=== PATIENT | female | born 1930 | race Caucasian/White ===

== ENCOUNTER 2016-12-30 15:54 | Observation (INO) | payer MEDICARE, BC ==
[~2016-12-30] VITALS: Ht 162.6 cm; Wt 60.0 kg
[~2016-12-30 15:54] MED LIST: ATEN-51; LOSA25TA2; [UNRECOGNIZED DRUG - REMARK]
[2016-12-30] MEDS ORDERED: SOD CHLORIDE 0.9% 500 ML IV STA (16:01)
[2016-12-30 16:17] LABS: BASOPHILS % 0.3 % (0.0-2.0); EOSINOPHILS # 0.4 10^3/ul (0.0-0.5); EOSINOPHILS % 4.5 % (0.0-7.0); HEMATOCRIT 38.9 % (37.0-47.0); HEMOGLOBIN 13.6 g/dl (12.0-16.0); LYMPHOCYTES # 1.6 10^3/ul (0.8-2.9); LYMPHOCYTES % 17.6 % (15.0-51.0); MEAN CORPUSCULAR HEMOGLOBIN 36.4 pg (29.0-33.0); MEAN PLATELET VOLUME 10.6 fl (7.4-10.4); MONOCYTE # 0.8 10^3/ul (0.3-0.9); MONOCYTES % 9.1 % (0.0-11.0); NEUTROPHIL # 6.3 10^3/ul (1.6-7.5); NEUTROPHILS % 68.3 % (39.0-77.0); PLATELET COUNT 172 10^3/UL (140-415); RED BLOOD COUNT 3.74 10^6/ul (4.20-5.40); RED CELL DISTRIBUTION WIDTH 12.2 % (11.5-14.5); WHITE BLOOD COUNT 9.2 10^3/ul (4.8-10.8)
--- NOTE | 2016-12-30 16:51 | RADRPT ---
PROCEDURE: CT head without intravenous contrast CLINICAL INDICATION: Syncope. COMPARISON: None relevant listed. TECHNIQUE: Axial CT images from skull base to vertex with coronal and sagittal reformats. DOSE: The estimated administered radiation dose was CTDI vol = 44 mGy. DLP = 720 mGy-cm. One or mor e of the following dose reduction techniques were used: automated exposure control, adjustment of th e mA and/or kV according to patient size, or use of iterative reconstruction. FINDINGS: Parenchyma: No acute hemorrhage, large territorial infarction, or mass. Mild amount of periventricul ar and subcortical white matter hypodensity, a nonspecific finding often associated with chronic jose roangiopathy. Ventricles: Mild generalized volume with proportionate ex vacuo ventricular dilation. Extra-axial spaces: No herniation or midline shift. Paranasal sinuses: The right nasal cavity, right maxillary sinus, right ethmoid air cells, and right frontal sinus are opacified. Mastoids and middle ears: Clear. Visualized orbits: Bilateral lens replacements. Vessels: No calcified atherosclerotic arterial plaque identified. Bones: Normal. Extracranial soft tissues: Normal. Additional comment: None. IMPRESSION: 1. No acute hemorrhage or large territorial infarction. 2. Chronic senescent findings characterized by volume loss and white matter changes. 3. Obstructing lesion in the right nasal cavity with the right sided paranasal sinus disease. RPTAT: EE Physician Martin Date Time Electronically viewed and signed by Physician Martin on 12/30/2016 16:51 LG/
[2016-12-30] MEDS ORDERED: ATEN-51 PO (16:56)
--- NOTE | 2016-12-30 16:56 | RADRPT ---
PROCEDURE: XR Chest. CLINICAL INDICATION: Shortness of breath. Syncope. TECHNIQUE: Single frontal view. COMPARISON: None. FINDINGS: The lungs are clear. The heart size is normal. There is calcification in the aorta consistent with atherosclerosis. There is no pleural effusion. There is no pneumothorax. Surgical clips are present in the right axillary region. There are healing bilateral rib fractures. IMPRESSION: 1. Atherosclerosis. 2. Prior right axillary surgery. 3. Healing bilateral rib fractures. 4. Otherwise unremarkable chest radiograph. RPTAT: QQ .Rosalino Rodriguez MD, MD Date Time Electronically viewed and signed by .Rosalino Rodriguez MD, MD on 12/30/2016 16:55 .R/
[2016-12-30] MEDS ORDERED: LOSA25TA5 PO (16:57)
[2016-12-30] MEDS ORDERED: ASPI-664 PO (16:57)
[2016-12-30] MEDS ORDERED: CHOL100062 PO (16:58)
[2016-12-30] MEDS ORDERED: ASC500 PO (16:59)
[2016-12-30] MEDS ORDERED: CYAN100 PO (17:00)
[2016-12-30 17:35] LABS: ANION GAP 17 (8-16); BLOOD UREA NITROGEN 21 mg/dl (7-20); CALCIUM 10.1 mg/dl (8.4-10.2); CARBON DIOXIDE 22 mmol/L (21-31); CHLORIDE 103 mmol/L (97-110); CREATININE 1.06 mg/dl (0.44-1.00); GLUCOSE 130 mg/dl (70-220); POTASSIUM 3.9 mmol/L (3.5-5.1); SODIUM 138 mmol/L (135-144)
--- NOTE | 2016-12-30 17:44 | ERD ---
ER Documentation Chief Complaint Chief Complaint BIB RA FOR EVAL OF SYNCOPAL EPISODE AT HOME. HPI This is an 86-year-old female who presents the emergency room with a syncopal episode. The patient does report an MRI that showed possible brain lesion but she does not know the specifics. She states that she was talking to her sister and suddenly passed out. Her sister reported no prodrome. The patient does not describe a prodrome of headache or shortness of breath. The patient is currently asymptomatic. The patient's sister did note some mild shaking of the upper extremities but on the lower extremities. The patient had no tongue biting, no bladder incontinence or bowel incontinence and no postictal state. The patient is otherwise resting comfortably and feels normal at this point. ROS All systems reviewed and are negative except as per history of present illness. Medications Home Meds Reported Medications Cyanocobalamin* (Vitamin B12*) Unknown Strength Tab, PO DAILY, TAB 12/30/16 Ascorbic Acid (Vitamin C) Unknown Strength Tab, PO DAILY, TAB 12/30/16 Cholecalciferol* (Vitamin D3*) 1,000 Unit Tablet, 1000 UNIT PO DAILY, TAB 12/30/16 Aspirin* (Aspirin* EC) 81 Mg Tablet.dr, 81 MG PO DAILY, TAB 12/30/16 Losartan Potassium* (Losartan Potassium*) Unknown Strength Tablet, PO DAILY, TAB 12/30/16 Atenolol* (Atenolol*) Unknown Strength Tablet, PO DAILY, #30 TAB 12/30/16 Discontinued Reported Medications [Remadex For Ca] No Conflict Check 04/25/09 Atenolol* (Atenolol*) 25 Mg Tablet 04/25/09 Losartan Potassium* (Cozaar*) 25 Mg Tablet 04/25/09 Allergies Allergies: Coded Allergies: No Known Drug Allergies (Verified Allergy, Mild, 12/30/16) PMhx/Soc History of Surgery: Yes (BREAST CA, BACK, THROID) Hx Neurological Disorder: No Hx Respiratory Disorders: No Hx Cardiac Disorders: Yes (HTN, ) Hx Miscellaneous Medical Probl: Yes (BREAST CA) Hx Alcohol Use: Yes (NIGHTLY) Hx Substance Use: No Hx Tobacco Use: Yes (OCC) Smoking Status: Current some day smoker FmHx Family History: No diabetes Physical Exam Vitals Vital Signs Date Time Temp Pulse Resp B/P Pulse Ox O2 Delivery O2 Flow Rate FiO2 10/21/17 15:57 98.4 90 18 152/65 98 Physical Exam General: Well developed, well nourished, no acute distress Head: Normocephalic, atraumatic. Eyes: Pupils equally reactive, EOM intact ENT: Moist mucous membranes Neck: Supple, no lymphadenopathy, No midline tenderness, deformities, step-offs to the cervical spine, full active and passive range of motion without midline pain. Respiratory: Lungs clear bilaterally, no distress Cardiovascular: RRR, no murmurs, rubs, or gallops Abdominal: Soft, non-tender, non-distended, no peritoneal signs : Deferred MSK: No edema, no unilateral swelling, 5/5 strength Neurologic: Alert and oriented, moving all extremities, normal speech, no focal weakness, no cerebellar signs Skin: No rash Psych: Normal mood Result Diagram: 12/30/16 1600 12/30/16 1600 Results 24 hrs Laboratory Tests Test 12/30/16 16:00 White Blood Count 9.210^3/ul Red Blood Count 3.7410^6/ul Hemoglobin 13.6g/dl Hematocrit 38.9% Mean Corpuscular Volume 104.0fl Mean Corpuscular Hemoglobin 36.4pg Mean Corpuscular Hemoglobin Concent 35.0g/dl Red Cell Distribution Width 12.2% Platelet Count 96511^3/UL Mean Platelet Volume 10.6fl Neutrophils % 68.3% Lymphocytes % 17.6% Monocytes % 9.1% Eosinophils % 4.5% Basophils % 0.3% Nucleated Red Blood Cells % 0.0/100WBC Neutrophils # 6.310^3/ul Lymphocytes # 1.610^3/ul Monocytes # 0.810^3/ul Eosinophils # 0.410^3/ul Basophils # 0.010^3/ul Nucleated Red Blood Cells # 0.010^3/ul Sodium Level 138mmol/L Potassium Level 3.9mmol/L Chloride Level 103mmol/L Carbon Dioxide Level 22mmol/L Anion Gap 17 Blood Urea Nitrogen 21mg/dl Creatinine 1.06mg/dl Glucose Level 130mg/dl Calcium Level 10.1mg/dl Troponin I < 0.012ng/ml Current Medications Medications (Trade) Dose Ordered Sig/Aubrey Route PRN Reason Start Time Stop Time Status Last Admin Dose Admin Sodium Chloride (NS) 500 ml @ 500 mls/hr Q1H STAT IV 12/30/16 16:01 12/30/16 17:00 DC 12/30/16 16:12 Procedures/MDM EKG, MONITORS, & DIAGNOSTIC IMAGING: EKG: I reviewed and interpreted a 12-lead EKG. Rhythm: Normal sinus rhythm Ectopy: None Intervals: No abnormalities, normal QRS and QTC ST segments: No elevations or depressions T waves: No contiguous inversions Chest x-ray: I reviewed and interpreted a 1 view of the chest Mediastinum: No enlargement Cardiac silhouette: No cardiomegaly Airspace: Clear lung pinon bilaterally without evidence of pneumothorax Bones: No evidence of fracture CT brain: IMPRESSION: 1. No acute hemorrhage or large territorial infarction. 2. Chronic senescent findings characterized by volume loss and white matter changes. 3. Obstructing lesion in the right nasal cavity with the right sided paranasal sinus disease. LAB INTERPRETATION: No significant anemia or cardiac ischemia with negative troponin MEDICAL DECISION MAKING: The patient presents with no prodrome of syncope. There was some shaking of the upper extremities but I believe this is myoclonus rather than seizure. The patient did not have a postictal state did not have incontinence. She has no history of seizures. I am concerned that this may represent cardiac arrhythmia. No signs or symptoms concerning for subarachnoid hemorrhage or acute MO or pulmonary embolism. No evidence of dissection. I strongly feel that the patient would benefit from hospitalization given no prodrome to her syncope. The patient is agreeable. ER COURSE: The patient was given IV fluids. Her laboratory testing shows no evidence of hemorrhage or cardiac ischemia. CT brain is negative. Again, given that the patient had no prodrome to her syncope this is concerning for possible cardiac process. The patient will benefit from telemetry monitoring. The patient is agreeable. I kept the patient and/or family informed of laboratory and diagnostic imaging results throughout the emergency room course. DISPOSITION PLAN: Telemetry admission for rule out of serious etiology of syncope CONSULTATION: Accepting care team and consultations: I discussed the current laboratory data, diagnostic imaging and emergency care provided. Admitting team: Dr. Parish Admitting team indication: Insurance directed Departure Diagnosis: Primary Impression: Syncope Syncope type: unspecified Qualified Code: R55 - Syncope, unspecified syncope type Condition: Stable JEN GONZALEZ MD Dec 30, 2016 17:44
[2016-12-30 17:47] LABS: TROPONIN-I < 0.012 ng/ml (0.00-0.12)
[2016-12-30] MEDS ORDERED: ACETAMINOPHEN 325 MG TAB PO PRN (18:00)
[2016-12-30] MEDS ORDERED: ONDANSETRON 4 MG INJ IV PRN (18:00)
--- NOTE | 2016-12-30 19:19 | HP ---
Date/Time of Note Date/Time of Note DATE: 12/30/16 TIME: 19:14 Assessment/Plan VTE Prophylaxis VTE Prophylaxis Intervention: LMWH Assessment/Plan Chief Complaint/Hosp Course 86 yo female presenting wtih syncope versus seizure. 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 - Will perform EEG to evaluate for seizure - CT head normal, and has had recent MRI which was reportedly normal per patient - Telemetry monitoring - TTE to assess cardiac function - Cycle troponins to exclude [place] Problems: HPI/ROS Admit Date/Time Admit Date/Time Hx of Present Illness 86 yo female who presents following LOC event Patient describes chronic episodes of very odd sensation in her head that she is having great difficulty describing to me. Apparently happen temporarliy and resolve. Has seen numerous neurologists who have done MRIs and cannot find an etiology. Never has had clear seizure. No headaches. She does have occasional vertigo she says Today was sitting at the table when she suddenly felt odd head sensatino as previously then LOC. Denied any preceding chest symptoms. LOC about 1 minute per her sister who was there. [place] very woozy when she awoke, felt she would pass out again but did not. EMS called, very tachycardic in the field, 150 in SR. Here symptoms resolved. Head CT, labs wnl. EKG sinus rhythm PMH/Family/Social Past Medical History Medical History: no pertinent history, hypertension Past Surgical History Past Surgical Hx: no surgical history Family History Significant Family History: no pertinent family hx Social History Alcohol Use: occasionally Smoking Status: Current some day smoker Drug Use: none Exam/Review of Systems Vital Signs Vitals Vital Signs Date Time Temp Pulse Resp B/P Pulse Ox O2 Delivery O2 Flow Rate FiO2 12/30/16 15:57 98.4 90 18 152/65 98 Exam Constitutional: alert, oriented, well developed Psych: nl mood/affect, no complaints Head: atraumatic, normocephalic Eyes: EOMI, PERRL, nl conjunctiva, nl lids, nl sclera ENMT: nl external ears & nose, nl lips & teeth, nl nasal mucosa & septum Neck: non-tender, supple Respiratory: clear to auscultation, normal air movement Cardiovascular: nl pulses, regular rate and rhythm Gastrointestinal: nl liver, spleen, non-tender, soft Musculoskeletal: nl extremities to inspection Extremities: normal pulses 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
[2016-12-30] MEDS ORDERED: AMLO5TAB4 PO (19:29)
[2016-12-30] MEDS ORDERED: NACL 0.9% 3 ML SYG IV SCH (19:30)
[2016-12-30 19:50] LABS: D-DIMER 549.48 ng/ml (<460)
[2016-12-30 21:08] VITALS: PULSE 66
[2016-12-30 21:20] VITALS: Ht 162.6 cm; Wt 60.0 kg
[2016-12-30] MEDS ORDERED: hydrALAzine 20 MG INJ IV PRN (22:00)
[2016-12-31] VITALS (8 sets, daily range): BP systolic 137–149; BP diastolic 6–67; PULSE 41–67; RESP 18–20
[2016-12-31] MEDS ORDERED: LOSARTAN 25 MG TAB PO SCH (09:00)
[2016-12-31] MEDS ORDERED: CHOLECALCIFEROL 1,000 UNIT TAB PO SCH (09:00)
[2016-12-31] MEDS ORDERED: ENOXAPARIN 30 MG/0.3 ML SYG SC SCH (09:00)
[2016-12-31] MEDS ORDERED: ATENOLOL 50 MG TAB PO SCH (09:00)
[2016-12-31 09:12] LABS: BASOPHILS % 0.4 % (0.0-2.0); EOSINOPHILS # 0.5 10^3/ul (0.0-0.5); EOSINOPHILS % 10.3 % (0.0-7.0); HEMATOCRIT 37.1 % (37.0-47.0); HEMOGLOBIN 12.2 g/dl (12.0-16.0); LYMPHOCYTES # 1.2 10^3/ul (0.8-2.9); MEAN CORPUSCULAR HEMOGLOBIN 34.7 pg (29.0-33.0); MEAN CORPUSCULAR HGB CONC 32.9 g/dl (32.0-37.0); MEAN CORPUSCULAR VOLUME 105.4 fl (82.0-101.0); MEAN PLATELET VOLUME 10.7 fl (7.4-10.4); MONOCYTE # 0.7 10^3/ul (0.3-0.9); MONOCYTES % 13.3 % (0.0-11.0); NEUTROPHIL # 2.7 10^3/ul (1.6-7.5); NEUTROPHILS % 52.8 % (39.0-77.0); PLATELET COUNT 155 10^3/UL (140-415); RED BLOOD COUNT 3.52 10^6/ul (4.20-5.40); RED CELL DISTRIBUTION WIDTH 12.7 % (11.5-14.5); WHITE BLOOD COUNT 5.2 10^3/ul (4.8-10.8)
[2016-12-31 09:35] LABS: ALBUMIN 3.9 g/dl (3.3-4.9); ALBUMIN/GLOBULIN RATIO 1.14; BILIRUBIN,INDIRECT 0.6 mg/dl (0-1.1); BILIRUBIN,TOTAL 0.6 mg/dl (0.2-1.3); CALCIUM 9.4 mg/dl (8.4-10.2); CREATININE 0.89 mg/dl (0.44-1.00); POTASSIUM 4.3 mmol/L (3.5-5.1); TOTAL PROTEIN 7.3 g/dl (6.1-8.1)
--- NOTE | 2016-12-31 14:45 | PDOCDIS ---
Discharge Instructions DIAGNOSIS Discharge Diagnosis Syncope CONDITION Patient Condition: Fair FOLLOW UP/APPOINTMENTS Follow-up Plan Follow up with your neurologist and primary care doctor for further management I think it would be calderon for you to stop taking atenolol as your heart rate gets slow and I am not sure of the indication for this medication for you. Please discuss this with your doctor DAYLIN SUE MD Dec 31, 2016 14:45
--- NOTE | 2016-12-31 15:37 | DS ---
Date/Time of Note Date/Time of Note DATE: 12/31/16 TIME: 15:36 Discharge Summary Admission/Discharge Info Admit Date/Time Dec 30, 2016 at 17:52 Discharge Date/Time Discharge Diagnosis Syncope Hx of Present Illness 86 yo female who presents following LOC event Patient describes chronic episodes of very odd sensation in her head that she is having great difficulty describing to me. Apparently happen temporarliy and resolve. Has seen numerous neurologists who have done MRIs and cannot find an etiology. Never has had clear seizure. No headaches. She does have occasional vertigo she says Today was sitting at the table when she suddenly felt odd head sensatino as previously then LOC. Denied any preceding chest symptoms. LOC about 1 minute per her sister who was there. [place] very woozy when she awoke, felt she would pass out again but did not. EMS called, very tachycardic in the field, 150 in SR. Here symptoms resolved. Head CT, labs wnl. EKG sinus rhythm Hospital Course 86 yo female presenting wtih syncope versus seizure. 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 Patient was monitored on telemetry without arrythmia aside from mild, asymptomatic bradycardia to the 40s. Troponins were negative. D-dimer was elevated to 500 but belowe her age based cutoff so now further workup was performed as she had no respiratory symptoms. She was ordered for TTE and EEG, however the patient preferred to be discharged and follow up with her primary care doctor without further workup. Home Meds Reported Medications Cyanocobalamin* (Vitamin B12*) Unknown Strength Tab, PO DAILY, TAB 12/30/16 Cholecalciferol* (Vitamin D3*) 1,000 Unit Tablet, 1000 UNIT PO DAILY, TAB 12/30/16 Aspirin* (Aspirin* EC) 81 Mg Tablet.dr, 81 MG PO DAILY, TAB 12/30/16 Discontinued Reported Medications Amlodipine Besylate* (Norvasc*) 5 Mg Tablet, 5 MG PO DAILY, TAB 12/30/16 Ascorbic Acid (Vitamin C) Unknown Strength Tab, PO DAILY, TAB 12/30/16 Losartan Potassium* (Losartan Potassium*) Unknown Strength Tablet, PO DAILY, TAB 12/30/16 Atenolol* (Atenolol*) Unknown Strength Tablet, PO DAILY, #30 TAB 12/30/16 [Remadex For Ca] No Conflict Check 04/25/09 Atenolol* (Atenolol*) 25 Mg Tablet 04/25/09 Losartan Potassium* (Cozaar*) 25 Mg Tablet 04/25/09 Follow-up Plan Follow up with your neurologist and primary care doctor for further management I think it would be calderon for you to stop taking atenolol as your heart rate gets slow and I am not sure of the indication for this medication for you. Please discuss this with your doctor Primary Care Provider Not On Staff Doctor Pending Labs Laboratory Tests Test 12/30/16 16:00 12/30/16 21:22 12/31/16 08:27 12/31/16 08:29 White Blood Count 9.210^3/ul (4.8-10.8) 5.210^3/ul (4.8-10.8) Red Blood Count 3.7410^6/ul (4.20-5.40) 3.5210^6/ul (4.20-5.40) Hemoglobin 13.6g/dl (12.0-16.0) 12.2g/dl (12.0-16.0) Hematocrit 38.9% (37.0-47.0) 37.1% (37.0-47.0) Mean Corpuscular Volume 104.0fl (82.0-101.0) 105.4fl (82.0-101.0) Mean Corpuscular Hemoglobin 36.4pg (29.0-33.0) 34.7pg (29.0-33.0) Mean Corpuscular Hemoglobin Concent 35.0g/dl (32.0-37.0) 32.9g/dl (32.0-37.0) Red Cell Distribution Width 12.2% (11.5-14.5) 12.7% (11.5-14.5) Platelet Count 13628^3/UL (140-415) 73357^3/UL (140-415) Mean Platelet Volume 10.6fl (7.4-10.4) 10.7fl (7.4-10.4) Neutrophils % 68.3% (39.0-77.0) 52.8% (39.0-77.0) Lymphocytes % 17.6% (15.0-51.0) 23.0% (15.0-51.0) Monocytes % 9.1% (0.0-11.0) 13.3% (0.0-11.0) Eosinophils % 4.5% (0.0-7.0) 10.3% (0.0-7.0) Basophils % 0.3% (0.0-2.0) 0.4% (0.0-2.0) Nucleated Red Blood Cells % 0.0/100WBC (0.0-0.0) 0.0/100WBC (0.0-0.0) Neutrophils # 6.310^3/ul (1.6-7.5) 2.710^3/ul (1.6-7.5) Lymphocytes # 1.610^3/ul (0.8-2.9) 1.210^3/ul (0.8-2.9) Monocytes # 0.810^3/ul (0.3-0.9) 0.710^3/ul (0.3-0.9) Eosinophils # 0.410^3/ul (0.0-0.5) 0.510^3/ul (0.0-0.5) Basophils # 0.010^3/ul (0.0-0.1) 0.010^3/ul (0.0-0.1) Nucleated Red Blood Cells # 0.010^3/ul (0.0-0.0) 0.010^3/ul (0.0-0.0) D-Dimer 549.48ng/ml (<460) D-Dimer Comment Sodium Level 138mmol/L (135-144) 141mmol/L (135-144) Potassium Level 3.9mmol/L (3.5-5.1) 4.3mmol/L (3.5-5.1) Chloride Level 103mmol/L (97-110) 104mmol/L (97-110) Carbon Dioxide Level 22mmol/L (21-31) 28mmol/L (21-31) Anion Gap 17 (8-16) 13 (8-16) Blood Urea Nitrogen 21mg/dl (7-20) 15mg/dl (7-20) Creatinine 1.06mg/dl (0.44-1.00) 0.89mg/dl (0.44-1.00) Glucose Level 130mg/dl (70-220) 97mg/dl (70-220) Calcium Level 10.1mg/dl (8.4-10.2) 9.4mg/dl (8.4-10.2) Troponin I < 0.012ng/ml (0.00-0.12) < 0.012ng/ml (0.00-0.12) Total Bilirubin 0.6mg/dl (0.2-1.3) Direct Bilirubin 0.00mg/dl (0.00-0.20) Indirect Bilirubin 0.6mg/dl (0-1.1) Aspartate Amino Transf (AST/SGOT) 30IU/L (15-46) Alanine Aminotransferase (ALT/SGPT) 29IU/L (13-69) Alkaline Phosphatase 47IU/L (42-121) Total Protein 7.3g/dl (6.1-8.1) Albumin 3.9g/dl (3.3-4.9) Globulin 3.40g/dl (1.3-3.2) Albumin/Globulin Ratio 1.14 DAYLIN SUE MD Dec 31, 2016 15:37
--- NOTE | 2016-12-31 16:28 | RADRPT ---
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 Physician: DAYLIN SUE Quality: Good Procedures: Transthoracic echocardiogram with complete 2D, M-Mode, and doppler examination. Indications: Abnormal EKG. Syncope. 2D/M Mode Doppler Measurement Value Normal Ranges Measurement Value Normal Ranges AoR Diam MM 2.9 cm RENNY Vmax 2.1 cm2 ACS MM 1.8 cm RENNY VTI 2.1 cm2 LA/Ao MM 1.2 AV Peak Sanya 1.1 m/sec LA Dimen MM 3.4 cm AV Peak PG 5.0 mmHg LVIDd 2D 4.4 3.5 - 5.6 cm LVOT Peak Sanya 0.9 m/sec LVIDs 2D 3.0 2.1 - 4.1 cm LVOT Peak PG 3.1 mmHg LVPWd 2D 1.0 0.6 - 1.1 cm MV E Peak Sanya 0.8 m/sec IVSd 2D 1.0 0.6 - 1.1 cm MV A Peak Sanya 1.0 m/sec EDV 2D 86.9 cm3 MV E/A 0.8 ESV 2D 26.8 cm3 MV Decel Time 214 msec EF 2D 60.0 50.0 - 65.0 % MV Decel [place] 4 LVOT Diam 1.9 cm MV E/A 0.8 TR Peak Sanya 2.7 m/sec TR Peak PG 28.7 mmHg RVSP 32.0 mmHg RA Pressure 3.0 Findings Left Ventricle: Normal left ventricular systolic function. Normal left ventricular cavity size. Normal left ventricular wall thickness. Ejection fraction is visually estimated at 60 %. Right Ventricle: Normal right ventricular size. Normal right ventricular systolic function. Left Atrium: The left atrium is normal in size. Right Atrium: The right atrium is normal in size. Atrial Septum: Normal atrial septum. Mitral Valve: Normal appearance of the mitral valve. Mild mitral annular calcification. Trace mitral regurgitation. Aortic Valve: Normal appearance of the aortic valve. No significant aortic stenosis or insufficiency. Normal trileaflet aortic valve structure. Aortic sclerosis without stenosis. Trileaflet aortic valve. Tricuspid Valve: Normal appearance of the tricuspid valve. Estimated peak PA systolic pressure 32 mmHg. There is mild tricuspid regurgitation. Pulmonic Valve: Normal pulmonic valve appearance. There is trace pulmonic regurgitation. Pericardium: Normal pericardium with no significant pericardial effusion. Aorta: Not well visualized. IVC: Normal size and normal respiratory collapse visually consistent with normal right atrial pressure. Conclusions 1.Normal left ventricular systolic function. Normal left ventricular cavity size. Normal left ventricular wall thickness. Ejection fraction is visually estimated at 60 %. 2.Normal appearance of the mitral valve. Mild mitral annular calcification. Trace mitral regurgitation. 3.Normal appearance of the tricuspid valve. Estimated peak PA systolic pressure 32 mmHg. There is mild tricuspid regurgitation. 4.Normal pulmonic valve appearance. There is trace pulmonic regurgitation. Electronically Signed By: Jabier Pena 31-Dec-2016 16:27:42 -0700 Patient Name: ERVIN DEAN Study Date: 31-Dec-[id number]
== END 2016-12-31 15:15 | disposition home or self-care (01) ==
LOC: E/R 15:54 → MS4 17:52
PROVIDERS: ADMIT Internal Medicine; ATTEND Internal Medicine
DX: R55 Syncope and collapse (principal); I10 Essential (primary) hypertension; F17.200 Nicotine dependence, unspecified, uncomplicated; Z79.82 Long term (current) use of aspirin; Z85.3 Personal history of malignant neoplasm of breast
CPT/HCPCS: 36415; 70450; 71010; 80048; 80053; 84484; 85025; 85378; 93005; 93306; 99285; G0378; J0360; J7040; 99217; J1650